=== PATIENT | female | born 1995 | race Caucasian/White ===

== ENCOUNTER 2017-08-28 06:32 | Day surgery (SDC) | payer OTHER, BC ==
[~2017-08-28 06:32] MED LIST: LACTATED RINGER'S 1,000 ML IV
[2017-08-28 07:56] LABS: ADD MAN DIFF? NO
[2017-08-28 08:01] LABS: WHITE BLOOD COUNT 6.8 10^3/ul (4.8-10.8)
[2017-08-28 08:01] LABS: BASOPHILS % 0.6 % (0.0-2.0); EOSINOPHILS # 0.2 10^3/ul (0.0-0.5); HEMATOCRIT 35.6 % (37.0-47.0); HEMOGLOBIN 11.8 g/dl (12.0-16.0); LYMPHOCYTES # 1.8 10^3/ul (0.8-2.9); LYMPHOCYTES % 26.2 % (18.0-55.0); MEAN CORPUSCULAR HEMOGLOBIN 30.1 pg (29.0-33.0); MEAN CORPUSCULAR HGB CONC 33.1 g/dl (32.0-37.0); MEAN CORPUSCULAR VOLUME 90.8 fl (72.0-104.0); MEAN PLATELET VOLUME 9.3 fl (7.4-10.4); MONOCYTE # 0.6 10^3/ul (0.3-0.9); MONOCYTES % 8.9 % (0.0-13.0); NEUTROPHIL # 4.1 10^3/ul (1.6-7.5); PLATELET COUNT 235 10^3/UL (140-415); RED BLOOD COUNT 3.92 10^6/ul (4.20-5.40); RED CELL DISTRIBUTION WIDTH 12.4 % (11.5-14.5)
[2017-08-28] MEDS ORDERED: PROPOFOL 20 ML (08:15)
[2017-08-28] MEDS ORDERED: CEFAZOLIN 1 GM INJ (08:15)
[2017-08-28] MEDS ORDERED: ROCURONIUM 50 MG INJ (08:15)
[2017-08-28] MEDS ORDERED: NEOSTIGMINE 3 MG/3 ML SYRINGE (08:15)
[2017-08-28] MEDS ORDERED: GLYCOPYRROLATE 0.4 MG INJ (08:15)
[2017-08-28] MEDS ORDERED: ONDANSETRON 4 MG INJ (08:17)
[2017-08-28] MEDS ORDERED: FENTAnyl 50 MCG/ML VIAL (08:17)
[2017-08-28] MEDS ORDERED: MIDAZOLAM 1 MG/ML 2 ML INJ (08:17)
[2017-08-28] MEDS ORDERED: DEXAMETHASONE 4 MG/ML 1 ML INJ (08:18)
[2017-08-28] MEDS ORDERED: MEPERIDINE 25 MG INJ (09:07)
[2017-08-28] MEDS: MEPERIDINE 25 MG INJ IV (09:25)
[2017-08-28] MEDS ORDERED: FENTAnyl 50 MCG/ML VIAL IV ×3 (09:30)
[2017-08-28] MEDS ORDERED: EPHEDrine SULFATE 50 MG/5 ML SYG IV (09:30)
[2017-08-28] MEDS ORDERED: ALBUTEROL 0.083% (NEB) 2.5 MG/3 ML AMP HHN (09:30)
[2017-08-28] MEDS ORDERED: OXYCODONE/ACETAMINOPHEN (5/325) TAB PO (09:30)
[2017-08-28] MEDS ORDERED: hydrALAzine 20 MG INJ IV (09:30)
[2017-08-28] MEDS ORDERED: MIDAZOLAM 1 MG/ML 2 ML INJ IV (09:30)
[2017-08-28] MEDS ORDERED: DIPHENHYDRAMINE 50 MG INJ IV (09:30)
[2017-08-28] MEDS: OXYCODONE/ACETAMINOPHEN (5/325) TAB PO (09:30)
[2017-08-28] MEDS ORDERED: LABETALOL HCL 20MG INJ IV (09:30)
[2017-08-28] MEDS ORDERED: IPRATROPIUM (NEB) 0.5 MG/2.5 ML AMP HHN (09:30)
[2017-08-28] MEDS ORDERED: TRIMETHOBENZAMIDE 100 MG/ML VIAL IM (09:30)
[2017-08-28] MEDS ORDERED: HYDROmorphONE 1 MG/5 ML IV SYRINGE IV ×3 (09:30)
[2017-08-28] MEDS ORDERED: ONDANSETRON 4 MG INJ IV (09:30)
== END 2017-08-28 10:45 | disposition home or self-care (01) ==
LOC: SDS 06:32
DX: O02.1 Missed abortion (principal)
CPT/HCPCS: 59820; 85025; 86900; 86901